=== PATIENT | female | born 1990 | race Caucasian/White ===

== ENCOUNTER 2016-08-20 12:54 | Emergency (ER) | payer MEDICAID, OTHER ==
[~2016-08-20 12:54] MED LIST: MACR100C PO; PYRI200T4 PO
--- NOTE | 2016-08-20 13:54 | PD ---
HPI Chief Complaint Pelvic pain Date Seen: August 20, 2016 Time Seen: 13:30 Travel History International Travel<30 Days: No Contact w/Intl Traveler<30Days: No Known Affected Area: No History of Present Illness HPI Patient is a 26-year-old at 32/4 weeks gestation with LIA of 10/11/16 based on second trimester ultrasound presenting due to pelvic pain. She reports that she has had pelvic pain for the past 2 weeks. This morning, she found that she was not able to roll over or get out of bed. She felt as if " her pelvis was going to break". Pain is located in her lower abdomen and at times radiates to her lower back. She has noticed an increase in the amount of vaginal discharge, it is yellow in color, non-malodorous. She denies dysuria. She endorses nausea, denies vomiting. She endorses movement, denies a large gush of fluid, vaginal bleeding, regular contractions. Patient reports that she was last been seen by an OB care provider at 23 weeks. She has not seen anyone since this time due to loss of her Medicaid. Para: 2 : 3 History Past Medical History Medical History: Denies Significant Hx Obstetric History Obstetric History 2 prior vaginal deliveries at 38 weeks, no complications with pregnancies or deliveries Past Surgical History Surgical History: No Previous Surgery Family History Narrative Family History Mother: Hypertension, diabetes Father: Unknown Social History Alcohol Use: Yes (12 drinks before she found out she was ) Tobacco Use: No Substance Abuse: No Allergies-Medications (Allergen,Severity, Reaction): Coded Allergies: No Known Allergies (Verified , 01/02/16) Home Meds Active Scripts Metronidazole 500 Mg [id number] Mg PO BID #14 TAB Ref 0 Prov:Paola Osorio MD R2 08/20/16 Phenazopyridine Hcl (Pyridium)200 Mg [id number] Mg PO Q8 PRN (pelvic pain) #6 TAB Prov:Jose Esposito MD 08/01/15 Nitrofurantoin Monohyd Macro (Macrobid)100 Mg [id number] Mg PO BID #10 CAP Prov:Jose Esposito MD 08/01/15 Review of Systems General / Constitutional: No: Fever, Chills Eyes: No: Visual changes HENT: Headaches (occasional) Cardiovascular: No: Chest Pain or Discomfort Respiratory: Cough Gastrointestinal: Nausea, Abdominal Pain, No: Vomiting Genitourinary: No: Dysuria Musculoskeletal: Edema (of lower extremities) Skin: No Rash Neurologic: No: Syncope Psychiatric: No: Mood Disorder Physical Exam Narrative GENERAL: Well-nourished, well-developed patient. SKIN: Warm and dry. HEAD: Normocephalic and atraumatic. EYES: No scleral icterus. No injection or drainage. ENT: No nasal drainage noted. Mucous membranes pink. Airway patent. NECK: Supple, trachea midline. No JVD. CARDIOVASCULAR: Regular rate and rhythm without murmurs, gallops, or rubs. RESPIRATORY: Breath sounds equal bilaterally. No accessory muscle use. ABDOMEN/GI: Abdomen soft, lower abdominal tenderness, bowel sounds present, no rebound, no guarding Gravid to 32 weeks size GENITOURINARY: External Genitalia: intact and normal in appearance Cervix: Posterior, midline Dilatation: 0cm Effacement: 0% Station: -3 Presentation: - Membranes: Intact Uterine Contractions: Absent FHT's: Category: 1 Baseline: 145 Reactive: + Variability: Moderate Decels: Absent EXTREMITIES: No cyanosis or edema. BACK: Nontender without obvious deformity. No CVA tenderness. NEUROLOGICAL: Awake and alert. Motor and sensory grossly within normal limits. Five out of 5 muscle strength in all muscle groups. Normal speech. Data Data Orders Vital Signs (Adult) .ON ADMISSION (08/20/16 13:45) ^ Labor Status (08/20/16 13:45) Urinalysis - C+S If Indicated (08/20/16 13:45) ^ Non Stress Test (08/20/16 13:45) ^ Hydration (08/20/16 13:45) Wet Prep Profile (08/20/16 13:45) Gc And Chlamydia Pcr (08/20/16 13:45) Ob/Psych Drug Screen, Urine (08/20/16 13:45) MDM Interpretation(s) Patient is a 26-year-old at 32/4 weeks gestation with LIA of 10/11/16 based on second trimester ultrasound presenting due to pelvic pain. IUP Category 1 tracing, reassuring External monitoring/toco Pelvic Pain No contractions Pelvic exam with closed cervix UA, with likely contaminant Wet prep positive for Clue cells, will treat for bacterial vaginosis: Metronidazole 500 mg PO BID 7 days UDS positive for cannabinoids GC/Chlamydia PCR pending Limited care Patient given information for [facility] for [facility] Dr. Michelle Pts contact information [phone] Pharmacy: [facility] Diagnosis Diagnosis: Primary Impression: Normal Additional Impression: Not in labor Disposition: 01 DISCHARGE HOME Condition: Stable Scripts Metronidazole 500 Mg [id number] Mg PO BID #14 TAB Ref 0 Prov:Paola Osorio MD R2 08/20/16 Paola Osorio MD R2 August 20, 2016 13:54
[2016-08-20 14:16] LABS: BACTERIA, URINE OCC /hpf; BLOOD, URINE NEG (NEG); GLUCOSE,URINE NEG (NEG); KETONE, URINE NEG (NEG); MUCUS URINE FEW /lpf (OCC); NITRITE,URINE NEG (NEG); PH, URINE 7.5 (5.0-8.5); SQUAMOUS EPITHELIAL CELL URINE 5 /hpf (0-5); URINE COLOR YELLOW (YELLW/STRAW)
[2016-08-20 14:18] LABS: COMMENT (UR) CULTURE INDICATED; CULTURE IF INDICATED CULTURE INDICATED
[2016-08-20 14:26] LABS: AMPHETAMINE, URINE NEG (NEG); BARBITURATES, URINE NEG (NEG); COCAINE, URINE NEG (NEG)
[2016-08-20] MEDS ORDERED: METR500T10 PO (14:59)
[2016-08-23 16:21] LABS: BATH SALTS (MDPV) UR NEG (NEG); ECSTASY (MDMA) UR NEG (NEG); GABAPENTIN UR NEG (NEG); HEROIN (6-ACETYLMORPHINE) UR NEG (NEG); HYDROMORPHONE U NEG (NEG); K2 SPICE UR NEG (NEG); OBMETHADONE UR NEG (NEG); OXYCODONE (PERCODAN) NEG (NEG); PHENCYCLIDINE URINE NEG (NEG)
== END 2016-08-20 15:35 | disposition home or self-care (01) ==
LOC: HOBED 12:54
DX: O23.593 Infection of other part of genital tract in pregnancy, third trimester (principal); N76.0 Acute vaginitis; B96.89 Other specified bacterial agents as the cause of diseases classified elsewhere; Z3A.32 32 weeks gestation of pregnancy
CPT/HCPCS: 59025; 80307; 81001; 87086; 87210; 99284; G0481

== ENCOUNTER 2017-04-29 13:28 | Emergency (ER) | payer MEDICAID ==
[~2017-04-29 13:28] MED LIST changes: +METR1TAB76 PO
[2017-04-29 13:29] VITALS: BP 125/77; PULSE 78; RESP 18; TEMP 97.9; O2SAT 100
[2017-04-29 14:26] LABS: BASOPHIL % 0.2 % (0.0-2.0); EOSINOPHIL % 0.3 % (0.0-4.0); HEMATOCRIT 41.9 % (35.0-46.0); HEMOGLOBIN 13.9 GM/DL (11.6-15.3); LYMPH % 7.1 % (9.0-44.0); MEAN CELL VOLUME 88.4 FL (80.0-100.0); MEAN CORPUSCULAR HEMOGLOBIN 29.3 PG (27.0-34.0); MEAN CORPUSCULAR HGB CONC 33.2 % (32.0-36.0); MEAN PLATELET VOLUME 7.7 FL (7.0-11.0); MONO % 2.8 % (0.0-8.0); MONOCYTE # 0.4 TH/MM3 (0-0.9); NEUT % 89.6 % (16.0-70.0); PLATELET COUNT 314 TH/MM3 (150-450); RED BLOOD COUNT 4.74 MIL/MM3 (4.00-5.30); RED CELL DISTRIBUTION WIDTH 13.8 % (11.6-17.2); WHITE BLOOD COUNT 13.4 TH/MM3 (4.0-11.0)
[2017-04-29 14:42] LABS: BILIRUBIN, URINE NEG (NEG); BLOOD, URINE NEG (NEG); GLUCOSE,URINE NEG (NEG); KETONE, URINE 10 mg/dL (NEG); MUCUS URINE MOD /lpf (OCC); NITRITE,URINE NEG (NEG); PH, URINE 6.5 (5.0-8.5); SQUAMOUS EPITHELIAL CELL URINE 3 /hpf (0-5); URINE COLOR YELLOW (YELLW/STRAW); URINE LEUKOCYTE ESTERASE NEG (NEG)
[2017-04-29 14:43] LABS: ALBUMIN 4.3 GM/DL (3.4-5.0); ALT (GPT) 16 U/L (10-53); AST (GOT) 16 U/L (15-37); BICARBONATE 29.1 MEQ/L (21.0-32.0); BLOOD UREA NITROGEN 14 MG/DL (7-18); CALCIUM 9.7 MG/DL (8.5-10.1); CHLORIDE 104 MEQ/L (98-107); CREATININE 0.68 MG/DL (0.50-1.00); GLOMERULAR FILTRATION RATE 105 ML/MIN (>89); GLUCOSE,RANDOM 95 MG/DL (74-106); SODIUM (NA) 138 MEQ/L (136-145)
[2017-04-29 14:46] LABS: ALKALINE PHOSPHATASE 125 U/L (45-117); TOTAL BILIRUBIN ADULT 0.5 MG/DL (0.2-1.0); TOTAL PROTEIN 8.4 GM/DL (6.4-8.2)
[2017-04-29] MEDS ORDERED: LIDOCAINE VISCOUS 2% SOLN 15 ML UDC PO ONE (15:45)
[2017-04-29] MEDS ORDERED: ALUMINUM/MAGNESIUM/SIMETH 30 ML CUP PO ONE (15:45)
--- NOTE | 2017-04-29 15:45 | PD ---
HPI Chief Complaint: Abdominal Pain Time Seen by Provider: 15:40 Travel History International Travel<30 days: No Contact w/Intl Traveler<30days: No Traveled to known affect area: No History of Present Illness HPI 27-year-old female patient presents emergency department stating that upon arising this morning she felt well, and then she had some cookies and milk. She states after 20 minutes she had sudden onset and vomiting 2. Since that time she has had pain in the region which has been intermittent and persistent since that time. Nauseous at this time. She denies fever, chills, shortness of breath, cough, or other symptoms. She states her pain is currently 6-8/10. Patient describes the pain as sharp. The patient states she has no known drug allergies. PFSH Past Medical History Asthma: Yes Diminished Hearing: No Immunizations Current: Yes ?: Not LMP: 04/24/2017 : 2 Para: 2 Past Surgical History Section: Yes Social History Alcohol Use: Yes (12 drinks before she found out she was ) Tobacco Use: No Substance Use: No Allergies-Medications (Allergen,Severity, Reaction): Coded Allergies: No Known Allergies (Verified , 01/02/16) Reported Meds & Prescriptions Reported Meds & Active Scripts Active Zofran (Ondansetron HCl) 4 Mg Tab 4 Mg PO Q6HR PRN Ranitidine Maximum Strength (Ranitidine HCl) 150 Mg Tab 150 Mg PO BID 30 Days Metronidazole 500 Mg Tab 500 Mg PO BID Pyridium (Phenazopyridine HCl) 200 Mg Tab 200 Mg PO Q8 PRN Macrobid (Nitrofurantoin Macrocrystals) 100 Mg Cap 100 Mg PO BID Review of Systems General / Constitutional: No: Fever, Chills Eyes: No: Visual changes HENT: No: Headaches Cardiovascular: No: Chest Pain or Discomfort Respiratory: No: Shortness of Breath Gastrointestinal: Positive: Nausea, Vomiting, No: Diarrhea, Abdominal Pain, Hematemesis, Hematochezia, Constipation (Earlier this morning), Changes in Bowel Habits, Indigestion, Dysphagia, Loss of Appetite Genitourinary: No: Urgency, Frequency, Dysuria Musculoskeletal: No: Pain Skin: No Rash Neurologic: No: Weakness Psychiatric: No: Depression Endocrine: No: Polydipsia Hematologic/Lymphatic: No: Easy Bruising Physical Exam Narrative GENERAL: Patient appears in no acute distress. Patient is seated comfortably on exam table, sit up without difficulty. SKIN: Warm and dry. Normal color. Normal turgor. No rash HEAD: Atraumatic. Normocephalic. EYES: Pupils equal and round. No scleral icterus. No injection or drainage. ENT: No nasal bleeding or discharge. Mucous membranes pink and moist. Clear. Airways patent. NECK: Trachea midline. Supple and nontender. CARDIOVASCULAR: Regular rate and rhythm. RESPIRATORY: No accessory muscle use. Clear to auscultation. Breath sounds equal bilaterally. GASTROINTESTINAL: Abdomen soft, mild to moderate epigastric tenderness without rebound, nondistended. Hepatic and splenic margins not palpable. MUSCULOSKELETAL: Extremities without clubbing, cyanosis, or edema. No obvious deformities. NEUROLOGICAL: Awake and alert. No obvious cranial nerve deficits. Motor grossly within normal limits. Five out of 5 muscle strength in the arms and legs. Normal speech. PSYCHIATRIC: Appropriate mood and affect; insight and judgment normal. Data Data Last Documented VS Vital Signs Date Time Temp Pulse Resp B/P (MAP) Pulse Ox O2 Delivery O2 Flow Rate FiO2 04/29/17 13:29 97.9 78 18 125/77 (93) 100 Orders Orders Complete Blood Count With Diff (04/29/17 13:54) Comprehensive Metabolic Panel (04/29/17 13:54) Lipase (04/29/17 13:54) Urinalysis - C+S If Indicated (04/29/17 13:54) Ed Urine Pregnancytest Poc (04/29/17 13:54) Al-Mag Hy-Si 40-40-4 Mg/Ml Liq (Mag-Al P (04/29/17 15:45) Lidocaine 2% Viscous (Xylocaine 2% Visco (04/29/17 15:45) Labs Laboratory Tests Test 04/29/17 14:10 04/29/17 14:11 Urine Color YELLOW Urine Turbidity CLEAR Urine pH 6.5 Urine Specific [place] 1.024 Urine Protein TRACE mg/dL Urine Glucose (UA) NEG mg/dL Urine Ketones 10 mg/dL Urine Occult Blood NEG Urine Nitrite NEG Urine Bilirubin NEG Urine Urobilinogen LESS THAN 2.0 MG/DL Urine Leukocyte Esterase NEG Urine RBC 1 /hpf Urine WBC 1 /hpf Urine Squamous Epithelial Cells 3 /hpf Urine Mucus MOD /lpf Microscopic Urinalysis Comment CULT NOT INDICATED White Blood Count 13.4 TH/MM3 Red Blood Count 4.74 MIL/MM3 Hemoglobin 13.9 GM/DL Hematocrit 41.9 % Mean Corpuscular Volume 88.4 FL Mean Corpuscular Hemoglobin 29.3 PG Mean Corpuscular Hemoglobin Concent 33.2 % Red Cell Distribution Width 13.8 % Platelet Count 314 TH/MM3 Mean Platelet Volume 7.7 FL Neutrophils (%) (Auto) 89.6 % Lymphocytes (%) (Auto) 7.1 % Monocytes (%) (Auto) 2.8 % Eosinophils (%) (Auto) 0.3 % Basophils (%) (Auto) 0.2 % Neutrophils # (Auto) 12.0 TH/MM3 Lymphocytes # (Auto) 1.0 TH/MM3 Monocytes # (Auto) 0.4 TH/MM3 Eosinophils # (Auto) 0.0 TH/MM3 Basophils # (Auto) 0.0 TH/MM3 CBC Comment DIFF FINAL Differential Comment Blood Urea Nitrogen 14 MG/DL Creatinine 0.68 MG/DL Random Glucose 95 MG/DL Total Protein 8.4 GM/DL Albumin 4.3 GM/DL Calcium Level 9.7 MG/DL Alkaline Phosphatase 125 U/L Aspartate Amino Transf (AST/SGOT) 16 U/L Alanine Aminotransferase (ALT/SGPT) 16 U/L Total Bilirubin 0.5 MG/DL Sodium Level 138 MEQ/L Potassium Level 3.9 MEQ/L Chloride Level 104 MEQ/L Carbon Dioxide Level 29.1 MEQ/L Anion Gap 5 MEQ/L Estimat Glomerular Filtration Rate 105 ML/MIN Lipase 53 U/L MDM Medical Decision Making Medical Screen Exam Complete: Yes Emergency Medical Condition: Yes Differential Diagnosis Acute nausea vomiting. Gastroenteritis. Esophagitis. Narrative Course Patient is medically stable at time of exam per Labs and urinalysis ordered in triage were all within normal limits. Patient is given a GI cocktail. Symptoms improve after her GI cocktail. Further testing is not felt warranted based on my history and physical. Patient is placed on ranitidine 150 twice daily 1 month. Patient is given Zofran 4 mg 1 every 6 hours as needed #12. Patient is to eat bland food, and use Maalox as needed. Patient to follow-up if symptoms do not improve or worsen as discussed. Diagnosis Primary Impression: Gastritis Qualified Codes: K29.00 - Acute gastritis without bleeding Referrals: Primary Care Physician Patient Instructions: Acute Nausea and Vomiting (ED), General Instructions Additional Instructions: Symptoms improve after her GI cocktail. Further testing is not felt warranted based on my history and physical. Patient is placed on ranitidine 150 twice daily 1 month. Patient is given Zofran 4 mg 1 every 6 hours as needed #12. Patient is to eat bland food, and use Maalox as needed. Patient to follow-up if symptoms do not improve or worsen as discussed. Med/Other Pt SpecificInfo: Prescription(s) given Scripts Ondansetron (Zofran) 4 Mg Tab 4 MG PO Q6HR Y for NAUSEA OR VOMITING, #12 TAB 0 Refills Prov: Samara Hamilton MD 04/29/17 Ranitidine (Ranitidine Maximum Strength) 150 Mg Tab 150 MG PO BID for 30 Days, #60 TAB 0 Refills Prov: Samara Hamilton MD 04/29/17 Disposition: 01 DISCHARGE HOME Condition: Stable Romero Moss Apr 29, 2017 15:45
[2017-04-29] MEDS ORDERED: RANI1TAB7 PO (16:16)
[2017-04-29] MEDS ORDERED: ZOFR4TAB PO (16:16)
--- NOTE | 2017-04-29 17:10 | PD ---
Data Data Last Documented VS Vital Signs Date Time Temp Pulse Resp B/P (MAP) Pulse Ox O2 Delivery O2 Flow Rate FiO2 04/29/17 13:29 97.9 78 18 125/77 (93) 100 Orders Orders Complete Blood Count With Diff (04/29/17 13:54) Comprehensive Metabolic Panel (04/29/17 13:54) Lipase (04/29/17 13:54) Urinalysis - C+S If Indicated (04/29/17 13:54) Ed Urine Pregnancytest Poc (04/29/17 13:54) Al-Mag Hy-Si 40-40-4 Mg/Ml Liq (Mag-Al P (04/29/17 15:45) Lidocaine 2% Viscous (Xylocaine 2% Visco (04/29/17 15:45) Labs Laboratory Tests Test 04/29/17 14:10 04/29/17 14:11 Urine Color YELLOW Urine Turbidity CLEAR Urine pH 6.5 Urine Specific [place] 1.024 Urine Protein TRACE mg/dL Urine Glucose (UA) NEG mg/dL Urine Ketones 10 mg/dL Urine Occult Blood NEG Urine Nitrite NEG Urine Bilirubin NEG Urine Urobilinogen LESS THAN 2.0 MG/DL Urine Leukocyte Esterase NEG Urine RBC 1 /hpf Urine WBC 1 /hpf Urine Squamous Epithelial Cells 3 /hpf Urine Mucus MOD /lpf Microscopic Urinalysis Comment CULT NOT INDICATED White Blood Count 13.4 TH/MM3 Red Blood Count 4.74 MIL/MM3 Hemoglobin 13.9 GM/DL Hematocrit 41.9 % Mean Corpuscular Volume 88.4 FL Mean Corpuscular Hemoglobin 29.3 PG Mean Corpuscular Hemoglobin Concent 33.2 % Red Cell Distribution Width 13.8 % Platelet Count 314 TH/MM3 Mean Platelet Volume 7.7 FL Neutrophils (%) (Auto) 89.6 % Lymphocytes (%) (Auto) 7.1 % Monocytes (%) (Auto) 2.8 % Eosinophils (%) (Auto) 0.3 % Basophils (%) (Auto) 0.2 % Neutrophils # (Auto) 12.0 TH/MM3 Lymphocytes # (Auto) 1.0 TH/MM3 Monocytes # (Auto) 0.4 TH/MM3 Eosinophils # (Auto) 0.0 TH/MM3 Basophils # (Auto) 0.0 TH/MM3 CBC Comment DIFF FINAL Differential Comment Blood Urea Nitrogen 14 MG/DL Creatinine 0.68 MG/DL Random Glucose 95 MG/DL Total Protein 8.4 GM/DL Albumin 4.3 GM/DL Calcium Level 9.7 MG/DL Alkaline Phosphatase 125 U/L Aspartate Amino Transf (AST/SGOT) 16 U/L Alanine Aminotransferase (ALT/SGPT) 16 U/L Total Bilirubin 0.5 MG/DL Sodium Level 138 MEQ/L Potassium Level 3.9 MEQ/L Chloride Level 104 MEQ/L Carbon Dioxide Level 29.1 MEQ/L Anion Gap 5 MEQ/L Estimat Glomerular Filtration Rate 105 ML/MIN Lipase 53 U/L [facility] Supervised Visit with [place]: Yes Narrative Course The history, exam, and medical decision-making in the associated midlevel provider note were completed with my assistance. I reviewed and agree with the findings presented. I attest that I had a [id number] encounter with the patient on the same day, and personally performed and documented my assessment and findings in the medical record. *My assessment and Findings: This is a 27-year-old female who presents to the emergency department with abdominal pain, nausea and vomiting. Her pain is localized to the epigastrium. Labs do demonstrate a mild leukocytosis. She has no fever and absolutely no pain in the lower abdomen to suggest appendicitis. I do not think she requires CT imaging. I did discuss with her the risks and the benefits and we agreed that if she develops new symptoms she will return to the emergency department. Diagnosis Primary Impression: Gastritis Qualified Codes: K29.00 - Acute gastritis without bleeding Referrals: Primary Care Physician Patient Instructions: General Instructions Scripts Ondansetron (Zofran) 4 Mg Tab 4 MG PO Q6HR Y for NAUSEA OR VOMITING, #12 TAB 0 Refills Prov: Samara Hamilton MD 04/29/17 Ranitidine (Ranitidine Maximum Strength) 150 Mg Tab 150 MG PO BID for 30 Days, #60 TAB 0 Refills Prov: Samara Hamilton MD 04/29/17 Disposition: 01 DISCHARGE HOME Condition: Stable Samara Hamilton MD Apr 29, 2017 17:10
[2017-04-29 17:13] VITALS: BP 118/72; PULSE 70; RESP 18; O2SAT 100
== END 2017-04-29 17:20 | disposition home or self-care (01) ==
LOC: NEPD 13:28
DX: K29.00 Acute gastritis without bleeding (principal)
CPT/HCPCS: 80053; 81001; 83690; 84703; 85025; 99283